=== PATIENT | female | born 1960 | race Caucasian/White ===

== ENCOUNTER 2017-07-17 10:38 | Emergency (ER) | payer BC ==
[~2017-07-17] VITALS: Ht 154.9 cm; Wt 108.0 kg
[~2017-07-17 10:38] MED LIST: CEPALOZ SUCK-ON; CHLO.12%30 SSP
[2017-07-17 10:41] VITALS: BP 170/92; PULSE 88; RESP 16; TEMP 98.1; O2SAT 100
[2017-07-17] MEDS ORDERED: ZOLO50TA PO (10:50)
[2017-07-17] MEDS ORDERED: ASPI-516 CHEW (10:50)
--- NOTE | 2017-07-17 11:05 | RADRPT ---
EXAM DATE/TIME: 07/17/2017 10:48 [place] COMPARISON: No previous studies available for comparison. INDICATIONS : MEDICAL HISTORY : None. SURGICAL HISTORY : None. ENCOUNTER: Initial ACUITY: 1 day PAIN SCORE: 8/10 LOCATION: Bilateral chest FINDINGS: A single view of the chest demonstrates the lungs to be symmetrically aerated without evidence of mas s, infiltrate or effusion. The cardiomediastinal contours are unremarkable. Osseous structures are intact. CONCLUSION: No evidence of acute cardiopulmonary disease. Silvestre Woodall MD on July 17, 2017 at 11:03 Board Certified Radiologist. This report was verified electronically.
--- NOTE | 2017-07-17 11:09 | PD ---
HPI Chief Complaint: Chest Pain Time Seen by Provider: 11:05 Travel History International Travel<30 days: No Contact w/Intl Traveler<30days: No Traveled to known affect area: No History of Present Illness HPI Patient presents with complaints of chest pain. States it feels as if she was punched in the chest with radiation to bilateral arms. Lasted for approximately 30 minutes. Nondiabetic. Nonsmoker. Positive family history for cardiac disease. Unspecific personal cardiac history. States a questionable heart attack 2 years ago. Denies diaphoresis or shortness of breath. PFSH Past Medical History Autoimmune Disease: No Blood Disorders: No Depression: Yes Heart Rhythm Problems: No Cancer: Yes (COLON Jul.08) Cardiovascular Problems: Yes (ND in 1999) High Cholesterol: No Chest Pain: No Congestive Heart Failure: No Cerebrovascular Accident: No Diabetes: No Diminished Hearing: No Endocrine: No Gastrointestinal Disorders: Yes GERD: Yes Genitourinary: No Headaches: No Hepatitis: No Hypertension: No Immune Disorder: No Implanted Vascular Access Dvce: Yes Musculoskeletal: Yes Neurologic: Yes Psychiatric: Yes Respiratory: No Immunizations Current: No Migraines: Yes Myocardial Infarction: Yes (POSSIBLE IN FEBRUARY 2000 ?) Thyroid Disease: No Tetanus Vaccination: > 5 Years Influenza Vaccination: No ?: Not Menopausal: No Past Surgical History Body Medical Devices: STAR IN LEFT BREAST FOR MAMMAGRAM Oral Surgery: Yes (TMJ) Tonsillectomy: Yes (T&A) Other Surgery: Yes (LT TMJ, COLON CANCER SCRAPING, LUMP REMOVED FROM LT BREAST ) Social History Alcohol Use: No Tobacco Use: No Substance Use: No Allergies-Medications (Allergen,Severity, Reaction): Coded Allergies: aspirin (Unverified Allergy, Severe, gi bleeding, 07/17/17) cephalexin (Unverified Allergy, Severe, 07/17/17) codeine (Unverified Allergy, Severe, 07/17/17) penicillin G (Unverified Allergy, Severe, 07/17/17) Reported Meds & Prescriptions Reported Meds & Active Scripts Active Reported Zoloft (Sertraline HCl) 50 Mg Tab 50 Mg PO DAILY Aspirin 81 Mg Chew 81 Mg CHEW DAILY Review of Systems General / Constitutional: No: Fever Eyes: No: Visual changes HENT: No: Headaches Cardiovascular: Positive: Chest Pain or Discomfort Respiratory: No: Shortness of Breath Gastrointestinal: No: Abdominal Pain Genitourinary: No: Dysuria Musculoskeletal: No: Pain Skin: No Rash Neurologic: No: Weakness Psychiatric: No: Depression Endocrine: No: Polydipsia Hematologic/Lymphatic: No: Easy Bruising Physical Exam Narrative GENERAL: Well-nourished, well-developed patient. SKIN: Focused skin assessment warm/dry. HEAD: Normocephalic. EYES: No scleral icterus. No injection or drainage. NECK: Supple, trachea midline. No JVD or lymphadenopathy. CARDIOVASCULAR: Regular rate and rhythm without murmurs, gallops, or rubs. RESPIRATORY: Breath sounds equal bilaterally. No accessory muscle use. GASTROINTESTINAL: Abdomen soft, non-tender, nondistended. MUSCULOSKELETAL: No cyanosis, or edema. BACK: Nontender without obvious deformity. No CVA tenderness. Data Data Last Documented VS Vital Signs Date Time Temp Pulse Resp B/P (MAP) Pulse Ox O2 Delivery O2 Flow Rate FiO2 07/17/17 14:24 67 16 149/67 (94) 98 Room Air 07/17/17 10:41 98.1 Orders Orders Electrocardiogram (07/17/17 10:41) Complete Blood Count With Diff (07/17/17 10:41) Basic Metabolic Panel (Bmp) (07/17/17 10:41) Creatine Kinase (Cpk) (07/17/17 10:41) Ckmb (Isoenzyme) Profile (07/17/17 10:41) Troponin I (07/17/17 10:41) Prothrombin Time / Inr (Pt) (07/17/17 10:41) Act Partial Throm Time (Ptt) (07/17/17 10:41) Chest, Single Ap (07/17/17 10:41) Clonidine (Catapres) (07/17/17 12:00) Acetaminophen (Tylenol) (07/17/17 13:45) Clonidine (Catapres) (07/17/17 13:45) Labs Laboratory Tests Test 07/17/17 11:01 White Blood Count 7.3 TH/MM3 Red Blood Count 4.45 MIL/MM3 Hemoglobin 12.2 GM/DL Hematocrit 37.0 % Mean Corpuscular Volume 83.1 FL Mean Corpuscular Hemoglobin 27.3 PG Mean Corpuscular Hemoglobin Concent 32.9 % Red Cell Distribution Width 14.0 % Platelet Count 297 TH/MM3 Mean Platelet Volume 7.9 FL Neutrophils (%) (Auto) 66.6 % Lymphocytes (%) (Auto) 23.2 % Monocytes (%) (Auto) 4.4 % Eosinophils (%) (Auto) 3.4 % Basophils (%) (Auto) 2.4 % Neutrophils # (Auto) 4.9 TH/MM3 Lymphocytes # (Auto) 1.7 TH/MM3 Monocytes # (Auto) 0.3 TH/MM3 Eosinophils # (Auto) 0.2 TH/MM3 Basophils # (Auto) 0.2 TH/MM3 CBC Comment DIFF FINAL Differential Comment Prothrombin Time 10.2 SEC Prothromb Time International Ratio 1.0 RATIO Activated Partial Thromboplast Time 24.1 SEC Blood Urea Nitrogen 13 MG/DL Creatinine 0.87 MG/DL Random Glucose 116 MG/DL Calcium Level 8.3 MG/DL Sodium Level 141 MEQ/L Potassium Level 4.1 MEQ/L Chloride Level 107 MEQ/L Carbon Dioxide Level 25.2 MEQ/L Anion Gap 9 MEQ/L Estimat Glomerular Filtration Rate 67 ML/MIN Total Creatine Kinase 59 U/L Troponin I LESS THAN 0.02 NG/ML MDM Medical Decision Making Medical Screen Exam Complete: Yes Emergency Medical Condition: Yes Differential Diagnosis Acute coronary syndrome, GERD, pleuritis Narrative Course Assessment and plan discussed with patient and mother at bedside. EKG reveals a sinus rhythm rate of 94. No ST segment elevation or depression. Cardiac enzymes negative. Pain resolved prior to discharge. Blood pressure improved with clonidine Diagnosis Primary Impression: Chest discomfort Patient Instructions: General Instructions Additional Instructions: Follow-up with PCP, encouraged to avoid aggravating factors of reflux including but not limited to alcohol tobacco late large meals spicy meals and weight. Return to emergency with any onset of symptoms. Consider daily enteric-coated baby aspirin. Tylenol for pain. Med/Other Pt SpecificInfo: No Meds Exist/No RX given Disposition: 01 DISCHARGE HOME Condition: Good Perfecto Mckeon MD Jul 17, 2017 11:09
[2017-07-17 11:11] LABS: AUTOMATED NEUTROPHIL # 4.9 TH/MM3 (1.8-7.7); BASOPHIL # 0.2 TH/MM3 (0-0.2); BASOPHIL % 2.4 % (0.0-2.0); EOSINOPHIL # 0.2 TH/MM3 (0-0.4); EOSINOPHIL % 3.4 % (0.0-4.0); HEMOGLOBIN 12.2 GM/DL (11.6-15.3); LYMPH % 23.2 % (9.0-44.0); LYMPHOCYTE # 1.7 TH/MM3 (1.0-4.8); MEAN CELL VOLUME 83.1 FL (80.0-100.0); MEAN CORPUSCULAR HEMOGLOBIN 27.3 PG (27.0-34.0); MEAN CORPUSCULAR HGB CONC 32.9 % (32.0-36.0); MEAN PLATELET VOLUME 7.9 FL (7.0-11.0); MONO % 4.4 % (0.0-8.0); MONOCYTE # 0.3 TH/MM3 (0-0.9); NEUT % 66.6 % (16.0-70.0); PLATELET COUNT 297 TH/MM3 (150-450); RED BLOOD COUNT 4.45 MIL/MM3 (4.00-5.30); WHITE BLOOD COUNT 7.3 TH/MM3 (4.0-11.0)
[2017-07-17 11:19] LABS: CHLORIDE 107 MEQ/L (98-107); SODIUM (NA) 141 MEQ/L (136-145)
[2017-07-17 11:21] LABS: BICARBONATE 25.2 MEQ/L (21.0-32.0); CALCIUM 8.3 MG/DL (8.5-10.1)
[2017-07-17 11:22] LABS: BLOOD UREA NITROGEN 13 MG/DL (7-18); GLUCOSE,RANDOM 116 MG/DL (74-106); PROTHROMBIN TIME - PATIENT 10.2 SEC (9.8-11.6)
[2017-07-17 11:24] VITALS: BP 170/90; PULSE 87; RESP 16; O2SAT 99
[2017-07-17 11:25] LABS: CREATININE 0.87 MG/DL (0.50-1.00); GLOMERULAR FILTRATION RATE 67 ML/MIN (>89)
[2017-07-17 11:30] LABS: TROPONIN I LESS THAN 0.02 NG/ML (0.02-0.05)
[2017-07-17] MEDS ORDERED: cloNIDine HCL 0.1 MG TAB PO ONE ×2 (12:00→13:45)
[2017-07-17 13:43] VITALS: BP 171/74; PULSE 90; RESP 18; O2SAT 99
[2017-07-17] MEDS ORDERED: ACETAMINOPHEN 325 MG TAB PO ONE (13:45)
[2017-07-17 14:24] VITALS: BP 149/67; PULSE 67; RESP 16; O2SAT 98
--- NOTE | 2017-07-18 19:08 | EKG ---
Date Performed: 07/17/2017 Time Performed: 10:48:16 PTAGE: 57 years EKG: Sinus rhythm MARKED LEFT AXIS DEVIATION PATTERN CONSISTENT WITH PULMONARY DISEASE VOLTAGE CRITERIA FOR LVH ABNORM AL ECG PREVIOUS TRACING : 06/21/2008 22.35 Compared to prior tracing no significant change DOCTOR: Allen Lira Interpretating Date/Time 07/18/2017 19:07:22
== END 2017-07-17 14:42 | disposition home or self-care (01) ==
LOC: PHED 10:38
DX: R07.89 Other chest pain (principal); R94.31 Abnormal electrocardiogram [ECG] [EKG]; I25.2 Old myocardial infarction
CPT/HCPCS: 71010; 80048; 82550; 84484; 85025; 85610; 85730; 93005; 99285